=== PATIENT | male | born 1975 | race Caucasian/White ===

== ENCOUNTER 2023-08-20 14:30 | Emergency (ER) | payer MEDICAID ==
[~2023-08-20] VITALS: Ht 180.3 cm; Wt 80.0 kg
[2023-08-20 14:40] VITALS: BP 132/95; PULSE 111; RESP 14; TEMP 98.9; O2SAT 98
[2023-08-20] MEDS ORDERED: SULF1TAB48 MT (14:47)
[2023-08-20] MEDS ORDERED: NAPR-681 MT (14:47)
== END 2023-08-20 14:56 | disposition home or self-care (01) ==
LOC: ER 14:30
DX: S80.861A Insect bite (nonvenomous), right lower leg, initial encounter (principal); L03.115 Cellulitis of right lower limb; W57.XXXA Bitten or stung by nonvenomous insect and other nonvenomous arthropods, initial encounter; Y93.89 Activity, other specified; Y92.89 Other specified places as the place of occurrence of the external cause; Y99.8 Other external cause status
CPT/HCPCS: 99283